=== PATIENT | female | born 1990 | race African-American/Black ===

== ENCOUNTER 2019-02-03 15:48 | Observation (INO) | payer MEDICAID ==
[~2019-02-03] VITALS: Ht 162.6 cm; Wt 144.2 kg
[~2019-02-03 15:48] MED LIST: PREN1TAB49
[2019-02-03 16:48] LABS: CLARITY URINE TURBID (CLEAR); COLOR URINE DARK YELLOW (YELLOW); KETONES URINE TRACE (NEGATIVE); LEUKOCYTE ESTERASE URINE 1+ (NEGATIVE); NITRITE URINE NEGATIVE (NEGATIVE); OCCULT BLOOD URINE 3+ (NEGATIVE); PH URINE 5.5 (4.5-8.0); PROTEIN URINE 1+ (NEGATIVE); SPECIFIC GRAVITY URINE 1.031 (1.005-1.030); UROBILINOGEN URINE 0.2 E.U./dL (0.2-1.0)
== END 2019-02-03 18:35 | disposition home or self-care (01) ==
LOC: 8 EST LDRP 15:48
PROVIDERS: ADMIT Obstetrics & Gynecology; ATTEND Obstetrics & Gynecology
DX: O26.893 Other specified pregnancy related conditions, third trimester (principal); R30.9 Painful micturition, unspecified; O62.9 Abnormality of forces of labor, unspecified; Z3A.34 34 weeks gestation of pregnancy
CPT/HCPCS: 81003; 87086; 99281; G0378

== ENCOUNTER 2019-03-05 23:33 | Inpatient (IN) | payer MEDICAID ==
[~2019-03-05] VITALS: Ht 162.6 cm; Wt 147.0 kg
[2019-03-06] MEDS ORDERED: BUTORPHANOL TARTRATE 2 MG/ML VIAL IV PRN (00:30)
[2019-03-06] MEDS ORDERED: LIDOCAINE HCL 1% 20ML VIAL (Pyxis) INJ INFIL SCH (00:30)
[2019-03-06] MEDS ORDERED: AMPICILLIN 2,000 MG in SODIUM CHLORIDE 0.9% 100 ML IV SCH (01:00)
[2019-03-06] MEDS: LACTATED RINGERS 1,000 ML IV SCH ×2 (01:55→10:29)
[2019-03-06] MEDS ORDERED: DEXT 5%/LR + PITOCIN 20UNITS/L 1,000 ML IV SCH (02:47)
[2019-03-06] MEDS ORDERED: METHYLERGONOVINE MALEATE 0.2 MG/ML IM PRN ×2 (03:00)
[2019-03-06] MEDS ORDERED: CARBOPROST TROMETHAMINE 250 MCG/ML AMPUL IM PRN ×2 (03:00)
[2019-03-06] MEDS ORDERED: MISOPROSTOL 100MCG TABLET VG SCH (03:00)
[2019-03-06] MEDS ORDERED: NALOXONE HCL 0.4 MG/ML 1ML VIAL IM PRN ×2 (03:00)
[2019-03-06 03:03] LABS: BASOPHILS % 0.3 % (0.0-2.0); CLARITY URINE CLOUDY (CLEAR); COLOR URINE DARK YELLOW (YELLOW); EOSINOPHILS % 0.9 % (0.0-5.0); HEMATOCRIT. 33.5 % (36.0-48.0); HEMOGLOBIN. 10.9 g/dL (12.0-16.0); KETONES URINE TRACE (NEGATIVE); LEUKOCYTE ESTERASE URINE 2+ (NEGATIVE); LYMPHOCYTES % 18.7 % (20.0-50.0); MEAN CORPUSCULAR HEMOGLOBIN 25.2 pg (28.0-32.0); MEAN CORPUSCULAR VOLUME 77.4 fL (81.0-99.0); MEAN PLATELET VOLUME 9.2 fl (7.4-10.4); MONOCYTES % 5.6 % (2.0-8.0); NEUTROPHILS % 74.5 % (40.0-76.0); NITRITE URINE NEGATIVE (NEGATIVE); OCCULT BLOOD URINE 2+ (NEGATIVE); PLATELET 187 x1000/uL (130-400); PROTEIN URINE 1+ (NEGATIVE); RED BLOOD CELL COUNT 4.33 mill/uL (4.2-5.4); RED CELL DISTRIBUTION WIDTH 15.4 % (11.6-14.6); SPECIFIC GRAVITY URINE 1.039 (1.005-1.030)
[2019-03-06 03:07] LABS: INR 0.9; PROTHROMBIN TIME 9.7 sec (9.6-11.0)
[2019-03-06 03:14] LABS: *AMPHETAMINES SCREEN URINE NEGATIVE (NEGATIVE); *BARBITURATES SCREEN URINE NEGATIVE (NEGATIVE); *BENZODIAZEPINES SCREEN URINE NEGATIVE (NEGATIVE); *COCAINE SCREEN URINE NEGATIVE (NEGATIVE)
[2019-03-06 03:16] LABS: CANNABINOID URINE SCREEN NEGATIVE (NEGATIVE); METHADONE URINE SCREEN NEGATIVE (NEGATIVE); OPIATES URINE SCREEN NEGATIVE (NEGATIVE); PHENCYCLIDINE URINE SCREEN NEGATIVE (NEGATIVE)
[2019-03-06 05:53] LABS: HEPATITIS B SURFACE ANTIGEN NEGATIVE
[2019-03-06] MEDS: AMPICILLIN 1,000 MG in SODIUM CHLORIDE 0.9% 50 ML IV SCH ×4 (06:48→21:50)
[2019-03-06] MEDS ORDERED: DEXT 5%/LR + PITOCIN 20UNITS/L 1,000 ML IV NR (19:45)
[2019-03-07] MEDS ORDERED: ROPIVACAINE HCL 2MG/ML (0.2%) 200ML BOTTLE IR ONE (01:30)
[2019-03-07] MEDS ORDERED: FENTANYL CITRATE/PF 50MCG/ML 2ML VIAL ONE (01:51)
[2019-03-07] MEDS ORDERED: BUPIVACAINE HCL/PF 0.25% (2.5MG/ML) 10ML ONE (01:52)
[2019-03-07] MEDS ORDERED: ROPIVACAINE HCL/PF EPIDURAL 200 ML EPI ONE (01:56)
[2019-03-07] MEDS ORDERED: SODIUM CHLORIDE 0.9% 10ML VIAL ONE (02:11)
[2019-03-07] MEDS ORDERED: EPHEDRINE SULFATE 50MG/ML VIAL ONE (02:11)
[2019-03-07] MEDS ORDERED: DEXT 5%/LR + PITOCIN 20UNITS/L 1,000 ML IV SCH (07:50)
[2019-03-07] MEDS ORDERED: BISACODYL 10MG SUPP PR PRN (08:00)
[2019-03-07] MEDS ORDERED: HEMORRHOIDAL SUPP PR PRN (08:00)
[2019-03-07] MEDS ORDERED: RHO(D) IMMUNE GLOBULIN 300 MCG/SYR IM PRN (08:00)
[2019-03-07] MEDS ORDERED: DIPHENHYDRAMINE 25MG CAPSULE PO PRN (08:00)
[2019-03-07] MEDS ORDERED: IBUPROFEN 400MG TABLET PO PRN (08:00)
[2019-03-07] MEDS ORDERED: LANOLIN OINT 7GM TUBE TOP PRN (08:00)
[2019-03-07] MEDS ORDERED: BENZOCAINE/LANOLIN/ALOE VERA SPRAY TOP PRN (08:00)
[2019-03-07] MEDS ORDERED: GLYCERIN/WITCH HAZEL LEAF MEDICATED PAD TOP PRN (08:00)
[2019-03-07 09:50] VITALS: BP 102/50
[2019-03-07] MEDS: ACETAMINOPHEN WITH CODEINE 300/30MG TABLET PO PRN ×2 (10:18→16:56)
[2019-03-07 10:20] VITALS: BP 95/64
[2019-03-07] MEDS: SIMETHICONE 80MG TABLET CHEW PO SCH ×3 (12:35→20:59)
[2019-03-07] MEDS: PRENATAL VIT/FE FUMARATE/FA TABLET PO SCH (12:36)
[2019-03-07 16:02] VITALS: BP 97/51
[2019-03-07] MEDS: DOCUSATE SODIUM 100MG CAPSULE PO SCH (20:59)
[2019-03-07 22:00] VITALS: BP 101/58
[2019-03-08] MEDS: ACETAMINOPHEN WITH CODEINE 300/30MG TABLET PO PRN ×3 (01:19→18:42)
[2019-03-08 05:24] VITALS: BP 102/56
[2019-03-08 05:53] LABS: BASOPHILS % 0.3 % (0.0-2.0); EOSINOPHILS % 1.3 % (0.0-5.0); HEMATOCRIT. 34.7 % (36.0-48.0); HEMOGLOBIN. 11.2 g/dL (12.0-16.0); LYMPHOCYTES % 18.9 % (20.0-50.0); MEAN CORPUSCULAR HEMOGLOBIN 25.4 pg (28.0-32.0); MEAN CORPUSCULAR VOLUME 78.7 fL (81.0-99.0); MONOCYTES % 7.7 % (2.0-8.0); NEUTROPHILS % 71.8 % (40.0-76.0); PLATELET 169 x1000/uL (130-400); RED BLOOD CELL COUNT 4.41 mill/uL (4.2-5.4); RED CELL DISTRIBUTION WIDTH 16.3 % (11.6-14.6)
[2019-03-08] MEDS: FERROUS SULFATE 325MG TABLET PO SCH ×3 (07:30→17:17)
[2019-03-08] MEDS: SIMETHICONE 80MG TABLET CHEW PO SCH ×4 (08:00→20:51)
[2019-03-08 08:20] VITALS: BP 112/59
[2019-03-08] MEDS: PRENATAL VIT/FE FUMARATE/FA TABLET PO SCH (09:00)
[2019-03-08 16:07] VITALS: BP 131/81
[2019-03-08] MEDS: DOCUSATE SODIUM 100MG CAPSULE PO SCH (20:50)
[2019-03-08 22:00] VITALS: BP 107/61
[2019-03-09] MEDS: ACETAMINOPHEN WITH CODEINE 300/30MG TABLET PO PRN ×2 (00:41→08:53)
[2019-03-09 05:00] VITALS: BP 102/68
[2019-03-09] MEDS: FERROUS SULFATE 325MG TABLET PO SCH ×2 (07:30→12:30)
[2019-03-09] MEDS: SIMETHICONE 80MG TABLET CHEW PO SCH ×2 (08:00→13:00)
[2019-03-09] MEDS: PRENATAL VIT/FE FUMARATE/FA TABLET PO SCH (09:00)
[2019-03-09 09:30] VITALS: BP 110/72
== END 2019-03-09 14:00 | disposition home or self-care (01) | DRG 560 ==
LOC: OBSVTOIN 23:33 → 8 EST LDRP 23:33 → 8EST 03-07 09:33
PROVIDERS: ADMIT Obstetrics & Gynecology; ATTEND Obstetrics & Gynecology
PROC: 10E0XZZ Delivery of Products of Conception, External Approach (ICD-10-PCS; principal; 2019-03-07)
DX: O69.81X0 Labor and delivery complicated by cord around neck, without compression, not applicable or unspecified (principal); O34.211 Maternal care for low transverse scar from previous cesarean delivery; O77.0 Labor and delivery complicated by meconium in amniotic fluid; Z37.0 Single live birth; Z3A.39 39 weeks gestation of pregnancy
CPT/HCPCS: 36415; 80305; 81003; 85025; 86592; 86703; 86762; 86850; 86900; 87340; 99281; G0378; J0290; J2590; J2795; J3010; J3490; J7050; J7120